=== PATIENT | female | born 1965 | race Caucasian/White ===

== ENCOUNTER 2019-08-22 09:32 | Emergency (ER) | payer OTHER ==
--- NOTE | 2019-08-22 09:51 | UC ---
Syncope/New Syncope HPI - HPI Summary HPI Summary: 54 yo female with runny nose/sneezing/GONZALEZ x 24 hours Has felt feverish and had chills This AM felt week and dizzy Went to bathroom to urinate Became diaphoretic as she walked to kitchen Lowered to floor by brother in law Feels much better now no CP or SOB states her BP runs low - History Of Current Complaint Stated Complaint: SP FALL-DIZZINESS Time Seen by Provider: 08/22/19 09:39 Hx Obtained From: Patient Onset/Duration: Sudden Onset Activity At Onset: Other - walking Frequency: Episodes x___ - 1, Episodes Lasting ____ (in Mins/Days/Weeks/Years) - seconds Context: Witnessed Associated Head Trauma: No Pain Intensity: 0 Pain Scale Used: 0-10 Numeric Aggravating Factor(s): Other - occurred minutes after urinating Alleviating Factor(s): Spontaneous Resolution Associated Signs And Symptoms: Positive: Headache - Allergies/Home Medications Allergies/Adverse Reactions: Allergies Allergy/AdvReac Type Severity Reaction Status Date / Time No Known Allergies Allergy Verified 08/22/19 09:57 Home Medications: Home Medications Elderberry Fruit and Flower [Black Elderberry 575 mg] 1 cap PO DAILY PRN [History Confirmed 08/22/19] Loratadine [Claritin] 10 mg PO DAILY 08/22/19 [History Confirmed 08/22/19] guaiFENesin [Mucinex] 600 mg PO BID 08/22/19 [History Confirmed 08/22/19] PMH/Surg Hx/FS Hx/Imm Hx Previously Healthy: Yes Cancer History: Breast Cancer - Family History Known Family History: Positive: Hypertension, Diabetes Review of Systems All Other Systems Reviewed And Are Negative: Yes Constitutional: Positive: Fever - feverish, Chills, Fatigue Skin: Positive: Negative Eyes: Positive: Negative ENT: Positive: Nasal Discharge, Sinus Congestion Respiratory: Positive: Cough Cardiovascular: Positive: Negative Gastrointestinal: Positive: Negative Genitourinary: Positive: Negative Motor: Positive: Negative Neurovascular: Positive: Negative Musculoskeletal: Positive: Negative Neurological: Positive: Headache Psychological: Positive: Negative Physical Exam Triage Information Reviewed: Yes Appearance: Well-Appearing, No Pain Distress, Well-Nourished Vital Signs Reviewed: Yes Eyes: Positive: Conjunctiva Clear ENT: Positive: Hearing grossly normal, Pharynx normal, Nasal congestion, Nasal drainage, TMs normal, Uvula midline. Negative: Tonsillar exudate, Trismus, Muffled voice, Hoarse voice Dental Exam: Normal Neck: Positive: Supple, Nontender, No Lymphadenopathy Respiratory: Positive: Lungs clear, Normal breath sounds, No respiratory distress, No accessory muscle use Cardiovascular: Positive: RRR, No Murmur, Tachycardia Abdomen Description: Positive: Nontender, No Organomegaly Bowel Sounds: Positive: Present Musculoskeletal: Positive: ROM Intact, No Edema Neurological: Positive: Alert Psychological Exam: Normal Skin Exam: Normal Diagnostics - EKG Cardiac Rate: Tachycardia Cardiac Rhythm: Sinus: Normal Ectopy: None ST Segment: Non-Specific Syncope Course/Dx - Course Course Of Treatment: influenza (-) I suggested further w/u at [facility] She declines EMS Sister will drive d/w Bri Ayala [employer] - Differential Dx/Diagnosis Provider Diagnosis: Syncope Discharge ED - Sign-Out/Discharge Documenting (check all that apply): Patient Departure All imaging exams completed and their final reports reviewed: No Studies - Discharge Plan Condition: Stable Disposition: HOME-RECOMMEND TO ED Referrals: No Primary Care Phys,NOPCP [Primary Care Provider] - Additional Instructions: I suggest you go directly to [facility] ER I spoke to Bri Mary [employer] [facility] and they are expecting you - Billing Disposition and Condition Condition: STABLE Disposition: Home-Recommend to ED
[2019-08-22 10:10] VITALS: BP 101/65
[2019-08-22 10:37] LABS: Influenza A Molecular NEGATIVE (Negative); Influenza B Molecular NEGATIVE (Negative)
== END 2019-08-22 11:08 | disposition home health service (06) ==
LOC: UCCORT 09:32
DX: R55 Syncope and collapse (principal); R42 Dizziness and giddiness; R09.89 Other specified symptoms and signs involving the circulatory and respiratory systems; R51 Headache; R09.81 Nasal congestion; R50.9 Fever, unspecified; Z85.3 Personal history of malignant neoplasm of breast; W19.XXXA Unspecified fall, initial encounter; Y92.9 Unspecified place or not applicable
CPT/HCPCS: 93005; 99202; G0463